=== PATIENT | female | born 1960 | race Caucasian/White ===

== ENCOUNTER 2016-10-23 01:52 | Emergency (ER) | payer MEDICARE ==
--- NOTE | ~2016-10-23 | CT16 ---
[facility] A Service of [facility] RADIOLOGY TEXT RESULTS PATIENT: MICKY GOMEZ LOCATION: SED : 56 UNIT #: [id number] AGE: [address]: Kirill Prakash MD SEX: F ORDER DR: [id number] [address] [address] [id number] MR#: [id number] Acc #: [id number] NAME: MICKY GOMEZ : 1960 SEX: F STUDY DATE/TIME: 10/23/2016 3:37 UNIT: SED ROOM: STUDY DESCRIPTION: CT Angio Chest for PE Attending Physician: Kirill Prakash M.D. Ordering Physician: Staff Doctor Not On Primary Care Physician: Bakari Marshall A.P.R.N. MEDICAL IMAGING REPORT This report is preliminary unless electronic signature is present. EXAM CT angiogram of the chest with contrast pulmonary embolism protocol. DATE 10/23/2016 at 03:37 HISTORY 56-year-old female with chronic with shortness of breath for a couple of days. Sharp chest pain when taking a deep breath and fever of 102 earlier today. Diagnosed with bronchitis a few weeks ago. D-dimer 324. History of sarcoidosis. COMPARISON PA and lateral chest radiograph 10/23/2016 at 02:40. VQ lung scan 04/01/2016. No previous CT chest for comparison at this institution. PROCEDURE 2 mm axial images through the chest after IV contrast administration. 3-D coronal MIP reformatted images were obtained. TECHNIQUE This CT exam was performed with one or more of the following radiation dose reduction techniques: automatic control, adjustment of mA and/or kV according to patient size, and iterative reconstruction. FINDINGS Scattered ground-glass densities are present within the right upper, middle and lower lobe and left lower lobe with sparing of the left upper lobe. No pulmonary embolism, aortic aneurysm or aortic dissection is seen. No pathologic adenopathy is seen. Dominant right upper paratracheal node measures 9 mm short axis, thought to be benign and reactive. Small amount of coronary calcification. No pericardial effusion. No pleural effusion. Cholecystectomy. Remainder of included upper abdominal organs [facility] A Service of [facility] RADIOLOGY TEXT RESULTS PATIENT: MICKY GOMEZ [place] [facility] [place] 56 UNIT #: [id number] AGE: [address]: Kirill Prakash MD SEX: F ORDER DR: are within normal limits. Mild degenerative endplate changes in the thoracic spine. No acute osseous abnormality. IMPRESSION 1. Scattered ground-glass opacities in both lungs with relative sparing of the left upper lobe. Correlate clinically for multifocal pneumonia or pneumonitis. 2. No pulmonary embolism, aortic aneurysm or aortic dissection. 3. Cholecystectomy. 4. Mild coronary artery calcifications. Dictated by... Sherry Govea M.D. THIS IS AN ELECTRONICALLY VERIFIED REPORT Sherry Govea M.D. at 10/23/2016 10:25 PM KATERINA/edita TD: 10/23/2016 12:41 JOB #: [id number] MEDICAL IMAGING REPORT
--- NOTE | ~2016-10-23 | EKG ---
PATIENT: MICKY GOMEZ UNIT #: [id number] Ventricular Rate: 92 BPM Atrial Rate: 92 BPM P-R Interval: 188 ms QRS Duration: 108 ms Q-T Interval: 366 ms QTC Calculation(Bezet): 452 ms P Waldo: 49 degrees Calculated R Waldo: -10 degrees Calculated T Waldo: 43 degrees Diagnosis Line: Normal sinus rhythm Diagnosis Line: Poor R wave progression questionable lead position Diagnosis Line: or body habitus Otherwise normal ECG Diagnosis Line: No previous ECGs available Diagnosis Line: Confirmed by JAY MIMS MD ([id number]) on 10/23/2016 Diagnosis Line: 4:15:09 PM INTERPRETING MD: PRASANNA MADISON
--- NOTE | ~2016-10-23 | CR63 ---
[facility] A Service of [facility] RADIOLOGY TEXT RESULTS PATIENT: MICKY GOMEZ LOCATION: SED : 56 UNIT #: [id number] AGE: [address]: Kirill Prakash MD SEX: F ORDER DR: [id number] [address] [address] [id number] E MR#: [id number] Acc #: [id number] NAME: MICKY GOMEZ : 1960 SEX: F STUDY DATE/TIME: 10/23/2016 2:40 UNIT: SED ROOM: STUDY DESCRIPTION: CR Chest 2 View Attending Physician: Kirill Prakash M.D. Ordering Physician: Ama Not Listed Primary Care Physician: Bakari Marshall A.P.R.N. MEDICAL IMAGING REPORT This report is preliminary unless electronic signature is present. EXAM PA and lateral chest, 10/23/2016. HISTORY Short of breath, sharp chest pain when taking a deep breath. Symptoms present for 1 month. COMPARISON STUDIES AP portable chest radiograph, 04/01/2016. FINDINGS No acute airspace disease. Heart size within normal limits. No pleural effusion or pneumothorax. Minimal degenerative spurring in the thoracic spine. No acute osseous abnormalities identified. IMPRESSION No acute cardiopulmonary findings. Dictated by... [id number] for Sherry Govea M.D. THIS IS AN ELECTRONICALLY VERIFIED REPORT Sherry Govea M.D. at 10/23/2016 10:25 PM KATERINA/duane TD: 10/23/2016 12:19 JOB #: [id number] MEDICAL IMAGING REPORT
[~2016-10-23 01:52] MED LIST: COUMADIN5 MG PO; DARVOCET-N 1001 TA1 PO; FLEXERIL10 MG PO; LORTAB 5/500 TA1 TA1 PO; PEPCID AC10 M1 PO; ROBAXIN 750750 MG PO; SYNTHROID0.05 MG PO; TEMAZEPAM PO; TOFRANIL-PM75 MG; TOFRANIL-PM75 MG PO; XANAX0.5 MG PO
[2016-10-23 02:04] LABS: BASOPHIL# 0.2 X10e3 (0-0.3); BASOPHIL% 0.9 % (0-2.5); EOSINOPHIL# 0.4 X10e3 (0-0.7); EOSINOPHIL% 2.2 % (0.0-7.0); LYMPHOCYTE# 2.3 X10e3 (1.0-3.5); MEAN CELL VOLUME 81.4 FL (83-96); MEAN CORPUSCULAR HGB CONC 33.2 g/dL (30-36); MEAN PLATELET VOLUME 6.5 FL (6.5-11.5); MONOCYTE# 0.7 X10e3 (0-1.0); MONOCYTE% 3.7 % (3.0-12.0); NEUTROPHIL% 80.2 % (40-75); PLATELET COUNT 302 X10e3 (140-420); RED BLOOD COUNT 4.43 X10e (3.90-5.30); RED CELL DISTRIBUTION WIDTH 14.8 % (11.0-15.5); WHITE BLOOD COUNT 17.4 X10e3 (4.0-10.5)
[2016-10-23 02:07] LABS: DIFF IND NO
[2016-10-23 02:23] LABS: POC - CKMB <1.0 ng/mL (0.0-7.9); POC - MYOGLOBIN 33.7 ng/mL (0.0-169.0); POC - TROPONIN <0.05 ng/mL (<=0.05)
[2016-10-23 02:28] LABS: ALBUMIN SERUM 3.7 g/dL (3.5-5.0); ALKALINE PHOSPHATASE 145 U/L (32-92); ALT (SGPT) 11 U/L (10-40); AST (SGOT) 34 U/L (10-42); BILIRUBIN,TOTAL 0.6 mg/dL (0.2-2.0); BLOOD UREA NITROGEN 10 mg/dL (9-23); BUN/CREATININE RATIO 14.28; CALCIUM SERUM 8.2 mg/dL (8.4-10.2); CARBON DIOXIDE 22 mmol/L (22-31); CHLORIDE 100 mmol/L (100-111); CREATININE SERUM 0.7 mg/dL (0.6-1.4); GLOM FILT RATE Estimated ABOVE60 mL/min (>60); GLUCOSE FASTING 151 mg/dL (70-110); PROTEIN TOTAL SERUM 7.8 g/dL (6.0-8.3); SODIUM 130 mmol/L (135-145)
[2016-10-23 02:30] LABS: BILIRUBIN, DIRECT <0.1 mg/dL (0.0-0.2); BILIRUBIN,INDIRECT 0.5 mg/dL (0.0-0.9); POTASSIUM 2.5 mmol/L (3.5-5.1)
[2017-04-23] MEDS ORDERED: MELOXICAM7.5 MG PO (10:52)
[2017-04-23] MEDS ORDERED: ESCITALOPRAM OX10 MG PO (10:52)
[2017-04-23] MEDS ORDERED: LEVOTHYROXINE75 MCG PO (10:54)
[2017-04-23] MEDS ORDERED: LIPITOR40 MG PO (10:54)
[2017-04-23] MEDS ORDERED: VITAMIN D350000 UNIT PO (10:58)
[2017-04-23] MEDS ORDERED: OMEPRAZOLE20 M1 PO (10:59)
[2017-04-23] MEDS ORDERED: WARFARIN SODIUM4 M1 PO (10:59)
[2017-04-23] MEDS ORDERED: AMLODIPINE BESY10 MG PO (10:59)
[2017-04-23] MEDS ORDERED: AMITRIPTYLINE100 MG PO (11:00)
[2017-04-23] MEDS ORDERED: ZANAFLEX4 M1 PO (11:00)
[2017-04-26] MEDS ORDERED: PERCOCET 5/321 UDTAB PO (10:45)
== END 2016-10-23 04:25 | disposition home or self-care (01) ==
LOC: SED 01:52
PROVIDERS: Emergency Medicine
DX: J18.0 Bronchopneumonia, unspecified organism (principal); Z98.890 Other specified postprocedural states; Z88.0 Allergy status to penicillin; Z88.2 Allergy status to sulfonamides; Z79.899 Other long term (current) drug therapy; Z79.02 Long term (current) use of antithrombotics/antiplatelets
CPT/HCPCS: 36415; 71020; 71275; 80048; 80076; 82553; 83874; 84484; 85025; 85379; 93005; 96374; 99284; J1885; Q9967

== ENCOUNTER 2016-12-03 15:22 | Inpatient (IN) | payer MEDICARE ==
--- NOTE | ~2016-12-03 | CR72 ---
[facility]. [facility] A Service of [facility] & [facility] RADIOLOGY TEXT RESULTS PATIENT: MICKY GOMEZ LOCATION: [place] [address] : 56 UNIT #: [id number] AGE: [address]: Sammie Rachel MD SEX: F ORDER DR: [id number] [address] [address] [id number] E MR#: [id number] Acc #: [id number] NAME: MICKY GOMEZ : 1960 SEX: F STUDY DATE/TIME: 12/03/2016 16:37 UNIT: SED ROOM: STUDY DESCRIPTION: CR Chest Single View Portable Attending Physician: Jerrell Burrell M.D. Ordering Physician: Jerrell Burrell M.D. Primary Care Physician: Bakari Marshall A.P.R.N. MEDICAL IMAGING REPORT This report is preliminary unless electronic signature is present. EXAM Portable chest, 1 view. DATE OF EXAM 12/03/2016 COMPARISON 10/23/2016 CLINICAL HISTORY Cough and short of air, right-sided chest pain since yesterday. FINDINGS Extensive right mid and lower lung infiltrate, no effusion. Left lung is clear. Borderline to mild cardiomegaly, no pneumothorax. Dictated by... Los Guevara M.D. THIS IS AN ELECTRONICALLY VERIFIED REPORT Los Guevara M.D. at 12/04/2016 9:40 AM RAHEEM/eddi TD: 12/03/2016 21:22 JOB #: [id number] MEDICAL IMAGING REPORT Page 1 of 1
--- NOTE | ~2016-12-03 | OR ---
Unit #: [id number] #: [id number] Patient: MICKY GOMEZ [id number] [address] [address] [id number] I MR#: [id number] NAME: MICKY GOMEZ ROOM: 554 Date of Procedure: Admission Date: 12/03/2016 Surgeon: Stella Moise M.D. : 1960 Attending Physician: Sammie Rachel M.D. Primary Care Physician: Bakari Marshall A.P.R.N. PROCEDURE OPERATIVE NOTE PREPROCEDURE DIAGNOSIS Pneumonia. POSTPROCEDURE DIAGNOSIS Pneumonia. PROCEDURE PERFORMED Diagnostic bronchoscopy. INDICATION Pneumonia. DETAILS OF THE PROCEDURE After taking consent from the patient explaining the risks and benefits, patient placed in appropriate position. Bronchoscope introduced through the oral cavity. Vocal cords appeared to be symmetrically moving toward the midline. Trachea was normal. Janeen was sharp. We examined the right upper, right middle, right lower lobe, left upper lobe, lingula, left lower lobe. No endobronchial lesion was found. There were thick mucoid secretions which were therapeutically suction. Then, we did a bronchoalveolar lavage in the right upper lobe area with 60 mL saline in and 20 mL back. The patient tolerated the procedure very well. No complication happened. Dictated by... Bacilio Lisa TD: 12/06/2016 09:49 JOB #: [id number] Unit #: [id number] #: [id number] Patient: MICKY GOMEZ PROCEDURE OPERATIVE NOTE Page 1 of 1 X Stella Moise MD X PROCEDURE OPERATIVE NOTE
--- NOTE | ~2016-12-03 | DS ---
Unit #: [id number] #: [id number] Patient: MICKY GOMEZ [id number] [address] [place], [place] [address] [id number] I MR#: [id number] NAME: MICKY GOMEZ ROOM: 55 Age: 56 Sex: F Admission Date: 12/03/2016 : 1960 Discharge Date: 12/09/2016 Attending Physician: Sammie Rachel M.D. Primary Care Physician: Bakari Marshall A.P.R.N. DISCHARGE SUMMARY FINAL DIAGNOSES 1. Acute hypoxic respiratory failure which is resolved. 2. Community acquired pneumonia. 3. History of sarcoidosis. 4. History of arterial blood clot. 5. History of depression. 6. History of hypothyroidism. DISCHARGE MEDICATIONS 1. Omnicef 300 mg p.o. b.i.d. for 7 days. 2. Prednisone 40 mg p.o. daily for 3 days, then decrease 10 mg every 3 days until off. 3. Continue the rest of the home medications. DIAGNOSTIC DATA LABORATORY: At discharge, PT/INR 17.2 and 1.6. CBC shows white blood cell count 18.2, 11.1, hematocrit 34.3 and platelet count 388. BMP showed sodium 139, potassium 3.6, chloride 103, BUN 17, creatinine 0.6. Bronch culture is 2+ normal shelby. Cytology seems to be negative for malignancy. Hemoglobin A1c 5.6. Influenza A and B were negative. IMAGING: CT scan of the chest was performed during hospitalization, which showed ground glass infiltrate in multiple areas is the right upper lobe and total amount of lung involved was increased from 10/23/2016. PROCEDURES PERFORMED Diagnostic bronchoscopy, which shows trachea was normal, michelle was sharp, no endobronchial lesions were found. There were thick mucoid secretions which were suctioned. HOSPITAL COURSE Ms. Rubio is a 56-year-old female who was admitted to the hospital by my colleague, Dr. Thomas. The patient came in with shortness of breath and cough with sputum production. The patient was diagnosed with acute hypoxic respiratory failure and pneumonia and chronic obstructive pulmonary disease. The patient does have a history of sarcoidosis. The patient is off O2 at this time. Dr. Moise evaluated the patient and as per 12/08/2016 note the patient can be discharged home on Omnicef. The patient does have ground glass on CT from 10/23/2016 and 12/04/2016. The patient does need to follow up with Dr. Moise as an outpatient because she will need CT scan again done after antibiotics have been completed. This has been discussed with the patient also and she verbalizes understanding. Unit #: [id number] #: [id number] Patient: MICKY GOMEZ PHYSICAL EXAMINATION VITALS: At discharge, blood pressure 146/88, respiratory rate 17, pulse 83, temperature 98.6, oxygen saturation 97%. CHEST: Fair air entry. Mild rhonchi present on the right side. EXTREMITIES: Negative edema. DISCHARGE INSTRUCTIONS 1. The patient is being discharged home in stable condition. 2. Medications as per medication reconciliation. 3. Follow up with Dr. Moise in two weeks. 4. Follow up with primary care provider in one week. Dictated by... Bacilio Angeles TD: 12/10/2016 08:29 JOB #: [id number] DISCHARGE SUMMARY Page 1 of 1 X Sammie Rachel MD X DISCHARGE SUMMARY
--- NOTE | ~2016-12-03 | CO ---
Unit #: [id number] #: [id number] Patient: MICKY GOMEZ [id number] [address] [address] [id number] MR#: [id number] NAME: MICKY GOMEZ ROOM: 554 Age: 56 Sex: F Admission Date: 12/03/2016 : 1960 Attending Physician: Sammie Rachel M.D. Primary Care Physician: Bakari Marshall A.P.R.N. CONSULTATION REPORT CHIEF COMPLAINT Cough, shortness of breath. REASON FOR CONSULTATION Chronic obstructive pulmonary disease exacerbation and pneumonia. HISTORY OF PRESENT ILLNESS The patient is a 56-year-old female with a past medical history of chronic obstructive pulmonary disease, who presented to the emergency room with the complaint of cough, shortness of breath and increasing sputum production. The patient was found to have pneumonia and has been admitted. I am seeing the patient at the bedside. She denies any headache, blurry vision or chest pain. PAST MEDICAL HISTORY 1. Chronic obstructive pulmonary disease. 2. Hypothyroidism. 3. Hypertension. SOCIAL HISTORY Positive smoking. No alcohol or drug abuse. FAMILY HISTORY None. ALLERGIES Reviewed. CURRENT MEDICATIONS As per MAR. Has been reviewed. REVIEW OF SYSTEMS Positive pallor. No edema. No cyanosis or jaundice. The rest is per the history of present illness. The rest of the 12-point review of systems has been reviewed and is negative. PHYSICAL EXAMINATION VITALS: Temperature 98, pulse 87, respiratory rate (1) , blood pressure 115/70. HEENT: Pupils equally round and reactive to light and accommodation. NECK: Supple. No jugular venous distension. CHEST: Bilateral air entry. Bilateral mild rhonchi. ABDOMEN: Nontender and soft. Bowel sounds positive. EXTREMITIES: No edema. Unit #: [id number] #: [id number] Patient: MICKY GOMEZ SKIN: No rashes. LYMPH: No lymphadenopathy. NEUROLOGIC: Awake, alert and oriented, no neurologic deficits. DIAGNOSTIC STUDIES IMAGING: Reviewed. LABORATORY: Reviewed. ASSESSMENT 1. Acute hypoxic respiratory failure. 2. Acute exacerbation of chronic obstructive pulmonary disease. 3. Pneumonia. PLAN Continue IV Zithromax and Rocephin. Continue IV steroids, bronchodilator, GI and DVT prophylaxis. Will order noncontrast CT of the chest. Please see orders for detailed plan. Thank you very much for this consultation. Dictated by... Bacilio Lisa/vianney TD: 12/04/2016 13:43 JOB #: [id number] CONSULTATION REPORT Page 1 of 1 X Stella Moise MD X CONSULTATION REPORT
--- NOTE | ~2016-12-03 | HP ---
Unit #: [id number] #: [id number] Patient: MICKY RAMOS [id number] [address] [address] [id number] I MR#: [id number] NAME: MICKY RAMOS ROOM: 55 Age: 56 Sex: F Admission Date: 12/03/2016 : 1960 Attending Physician: Sammie Rachel M.D. Primary Care Physician: Bakari Marshall A.P.R.N. HISTORY AND PHYSICAL ADMISSION DIAGNOSES 1. Acute hypoxemic respiratory failure. 2. Community-acquired pneumonia. 3. History of sarcoidosis. 4. History of arterial blood clot. 5. History of depression. HISTORY OF PRESENT ILLNESS Ms. Ramos is a 56-year-old female patient of Dr. Vaughan who presents to the emergency room with the complaints of increasing shortness of air, dyspnea. Initial evaluation with the x-ray was suspicious for pneumonia. Patient was started on Zithromax and Rocephin for community-acquired pneumonia and was admitted. Currently, she is much more comfortable. Shortness of air is improving. She is status post evaluation per Pulmonary and started on IV Solu-Medrol as well. She otherwise denies any active chest pain currently. Denies any headache, dizziness, fever, chills, nausea, vomiting, diarrhea or abdominal pain. Complains of some shortness of air and cough. Again, her symptoms are generally improving since admission to the hospital. PAST MEDICAL HISTORY Significant for: 1. History of sarcoidosis. 2. History of arterial blood clot. 3. Hypothyroidism. 4. Depression and anxiety. HOME MEDICATIONS Include: 1. Lortab. 2. Restoril. 3. Coumadin. 4. Pepcid. 5. Xanax. 6. Synthroid. 7. Imipramine. ALLERGIES 1. Penicillin. 2. Sulfa. SOCIAL HISTORY Denies any tobacco, alcohol, or illicit drugs. Unit #: [id number] #: [id number] Patient: MICKY RAMOS FAMILY HISTORY Unremarkable. PHYSICAL EXAMINATION VITAL SIGNS: BP 110/58, heart rate 103, respirations 20, temperature 97.7. GENERAL: The patient is 56-year-old female in no acute distress. HEENT: Head is atraumatic. Pupils equal, round, reactive to light and accommodation. Extraocular muscles are intact. Oropharynx is clear. NECK: Supple. No mass, no JVD, no bruits. LUNGS: Diminished bilaterally more on the left than right. ABDOMEN: Obese, soft, nontender, nondistended. LOWER EXTREMITIES: Without any cyanosis, clubbing, or edema. NEUROLOGIC: Grossly intact, no focal deficits. DIAGNOSTIC STUDIES LABORATORY: Chemistry is significant for sodium 130, otherwise unremarkable. PT/INR today 18.6 and 1.7. White count 23,000, hemoglobin 12 and hematocrit 36.4. IMAGING: Chest x-ray shows left lower lobe infiltrate. ASSESSMENT AND PLAN 1. Acute hypoxemic respiratory failure with community-acquired pneumonia. Continue bronchodilators, IV steroids and antibiotics, status post evaluation per Pulmonary. 2. History of sarcoidosis. 3. History of arterial blood clot. Continue Coumadin. Will change to Lovenox to treatment dose while INR is less than 2.0. 4. Depression anxiety. Continue home medications. 5. GI and DVT prophylaxis. Continue Protonix and current anticoagulation. Dictated by Bacilio Shahid/aba TD: 12/04/2016 19:23 JOB #: [id number] HISTORY AND PHYSICAL Page 1 of 1 X Carlos Enrique Thomas MD X HISTORY AND PHYSICAL
--- NOTE | ~2016-12-03 | CT57 ---
[facility] A Service of [facility] & [facility] RADIOLOGY TEXT RESULTS PATIENT: MICKY GOMEZ LOCATION: [facility] 55- : 56 UNIT #: [id number] AGE: [address]: Sammie Rachel MD SEX: F ORDER DR: [id number] [facility] [address] [place], [place] [address] [id number] I MR#: [id number] Acc #: [id number] NAME: MICKY GOMEZ : 1960 SEX: F STUDY DATE/TIME: 12/04/2016 13:59 UNIT: C5B ROOM: [facility] STUDY DESCRIPTION: CT Chest Wo Cont Attending Physician: Sammie Rachel M.D. Ordering Physician: Stella Moise M.D. Primary Care Physician: Bakari Marshall A.P.R.N. MEDICAL IMAGING REPORT This report is preliminary unless electronic signature is present EXAM CT chest without contrast HISTORY Cough, shortness of air beginning 2 days ago. COMPARISON STUDIES 10/23/2016. TECHNIQUE Axial 5 mm images were obtained through the chest without IV contrast. This CT exam was performed with one or more of the following radiation dose reduction techniques: automatic exposure control, adjustment of mA and/or kV according to patient size, and iterative reconstruction. FINDINGS There is a large area of ground-glass infiltrate in the right upper lobe measuring about 10 cm in diameter. In this same area on the prior study, there was an infiltrate about 4-5 cm in diameter. Additional ground-glass infiltrates are present in the right middle lobe and right lower lobe. There are similar to those seen on the prior study, although slightly more extensive and the left lung is clear. Thyroid gland is normal or absent. The aorta is normal in size. There is no mediastinal or hilar adenopathy. The visualized portions of the upper abdomen are normal. Bones are unremarkable. IMPRESSION 1. There are ground-glass infiltrates in multiple areas in the right upper lobe and the total amount of lung involved is increased from 10/23/2016. On the prior study, there was a left lower lobe superior segment ground-glass infiltrate and that has resolved. The left lung STS. [facility] A Service of [facility] & [facility] RADIOLOGY TEXT RESULTS PATIENT: MICKY GOMEZ LOCATION: [facility] [id number] : [birth year] UNIT #: [id number] AGE: [address]: Sammie Rachel MD SEX: F ORDER DR: is clear. 2. Otherwise, the study is negative. Dictated by... Anuj Sylvester M.D. THIS IS AN ELECTRONICALLY VERIFIED REPORT Anuj Sylvester M.D. at 12/05/2016 7:18 AM FEL/pcl TD: 12/04/2016 19:05 JOB #: [id number] MEDICAL IMAGING REPORT Page 1 of 1 COPY
--- NOTE | ~2016-12-03 | EKG ---
PATIENT: MICKY GOMEZ UNIT #: [id number] Ventricular Rate: 96 BPM Atrial Rate: 96 BPM P-R Interval: 164 ms QRS Duration: 98 ms Q-T Interval: 358 ms QTC Calculation(Bezet): 452 ms P Kirkland: 34 degrees Calculated R Kirkland: -13 degrees Calculated T Kirkland: 22 degrees Diagnosis Line: Normal sinus rhythm Diagnosis Line: Nonspecific T wave abnormality Diagnosis Line: Otherwise normal ECG Diagnosis Line: When compared with ECG of 23-OCT-2016 01:47, Diagnosis Line: No significant change was found Diagnosis Line: Confirmed by JAY MIMS MD ([id number]) on 12/05/2016 Diagnosis Line: 12:02:16 PM INTERPRETING MD: PRASANNA MADISON
[2016-12-03 15:56] LABS: BASOPHIL# 0.2 X10e3 (0-0.3); BASOPHIL% 0.8 % (0-2.5); EOSINOPHIL# 0.1 X10e3 (0-0.7); EOSINOPHIL% 0.3 % (0.0-7.0); HEMATOCRIT 36.4 % (35.0-45.0); LYMPHOCYTE# 1.2 X10e3 (1.0-3.5); LYMPHOCYTE% 5.3 % (17.0-45.0); MEAN CORPUSCULAR HGB CONC 32.9 g/dL (30-36); MEAN PLATELET VOLUME 6.8 FL (6.5-11.5); MONOCYTE# 0.8 X10e3 (0-1.0); MONOCYTE% 3.4 % (3.0-12.0); NEUTROPHIL# 20.7 X10e3 (1.5-7.1); NEUTROPHIL% 90.2 % (40-75); PLATELET COUNT 315 X10e3 (140-420); RED BLOOD COUNT 4.43 X10e (3.90-5.30); RED CELL DISTRIBUTION WIDTH 15.2 % (11.0-15.5)
[2016-12-03 16:10] LABS: DIFF IND YES
[2016-12-03 16:14] LABS: ALBUMIN SERUM 4.1 g/dL (3.5-5.0); BILIRUBIN, DIRECT 0.1 mg/dL (0.0-0.2); BILIRUBIN,INDIRECT 0.3 mg/dL (0.0-0.9); BILIRUBIN,TOTAL 0.4 mg/dL (0.2-2.0); BUN/CREATININE RATIO 15.71; CALCIUM SERUM 8.8 mg/dL (8.4-10.2); CREATININE SERUM 0.7 mg/dL (0.6-1.4); GLOM FILT RATE Estimated 95.5 mL/min (>60); POTASSIUM 3.6 mmol/L (3.5-5.1); PROTEIN TOTAL SERUM 7.8 g/dL (6.0-8.3)
[2016-12-03 16:30] LABS: INR 2.7; PROTHROMBIN TIME (PATIENT) 30.6 SECONDS (9.5-12.4)
[2016-12-03 16:50] LABS: PLATELET ESTIMATE NORMAL (NORMAL); RBC NORMAL YES
[2016-12-04 05:31] LABS: INR 1.7; PROTHROMBIN TIME (PATIENT) 18.6 SECONDS (9.6-11.5)
[2016-12-05 05:06] LABS: INFLUENZA A NEG (NEG); INFLUENZA B NEG (NEG)
[2016-12-05 05:23] LABS: HEMATOCRIT 32.4 % (35.0-45.0); HEMOGLOBIN 10.6 gm/dL (12.0-16.0); MEAN CELL VOLUME 82.1 FL (83-96); MEAN CORPUSCULAR HEMOGLOBIN 26.8 PG (28-34); MEAN CORPUSCULAR HGB CONC 32.6 g/dL (30-36); MEAN PLATELET VOLUME 7.1 FL (6.5-11.5); RED BLOOD COUNT 3.95 X10e (3.90-5.30); RED CELL DISTRIBUTION WIDTH 15.5 % (11.0-15.5); WHITE BLOOD COUNT 27.5 X10e3 (4.0-10.5)
[2016-12-05 05:30] LABS: INR 1.9
[2016-12-05 05:45] LABS: BUN/CREATININE RATIO 18.75; CALCIUM SERUM 9.3 mg/dL (8.4-10.2); CREATININE SERUM 0.8 mg/dL (0.6-1.4); GLOM FILT RATE Estimated 81.3 mL/min (>60); POTASSIUM 3.9 mmol/L (3.5-5.1)
[2016-12-06 07:01] LABS: HEMATOCRIT 34.5 % (35.0-45.0); HEMOGLOBIN 10.9 gm/dL (12.0-16.0); MEAN CELL VOLUME 82.9 FL (83-96); MEAN CORPUSCULAR HEMOGLOBIN 26.3 PG (28-34); MEAN CORPUSCULAR HGB CONC 31.7 g/dL (30-36); MEAN PLATELET VOLUME 7.3 FL (6.5-11.5); RED BLOOD COUNT 4.16 X10e (3.90-5.30); RED CELL DISTRIBUTION WIDTH 15.7 % (11.0-15.5); WHITE BLOOD COUNT 21.8 X10e3 (4.0-10.5)
[2016-12-06 07:07] LABS: INR 3.2
[2016-12-06 07:10] LABS: PROTHROMBIN TIME (PATIENT) 34.6 SECONDS (9.6-11.5)
[2016-12-06 07:41] LABS: CALCIUM SERUM 8.9 mg/dL (8.4-10.2); CREATININE SERUM 0.6 mg/dL (0.6-1.4); GLOM FILT RATE Estimated 100.5 mL/min (>60); POTASSIUM 3.8 mmol/L (3.5-5.1)
[2016-12-06 10:32] LABS: BODY FLUID APPEARANCE TURBID; BODY FLUID SOURCE BRONCHIAL LAVAGE
[2016-12-07 06:58] LABS: HEMATOCRIT 34.7 % (35.0-45.0); HEMOGLOBIN 11.1 gm/dL (12.0-16.0); MEAN CORPUSCULAR HEMOGLOBIN 26.6 PG (28-34); MEAN CORPUSCULAR HGB CONC 32.1 g/dL (30-36); MEAN PLATELET VOLUME 7.1 FL (6.5-11.5); RED BLOOD COUNT 4.18 X10e (3.90-5.30); RED CELL DISTRIBUTION WIDTH 15.5 % (11.0-15.5); WHITE BLOOD COUNT 17.3 X10e3 (4.0-10.5)
[2016-12-07 07:04] LABS: INR 3.3
[2016-12-07 07:47] LABS: BUN/CREATININE RATIO 28.33; CALCIUM SERUM 8.8 mg/dL (8.4-10.2); CREATININE SERUM 0.6 mg/dL (0.6-1.4); GLOM FILT RATE Estimated 100.5 mL/min (>60); POTASSIUM 3.6 mmol/L (3.5-5.1)
[2016-12-08 06:58] LABS: HEMOGLOBIN 11.2 gm/dL (12.0-16.0); MEAN CELL VOLUME 82.5 FL (83-96); MEAN CORPUSCULAR HEMOGLOBIN 26.5 PG (28-34); MEAN CORPUSCULAR HGB CONC 32.1 g/dL (30-36); MEAN PLATELET VOLUME 7.3 FL (6.5-11.5); RED BLOOD COUNT 4.24 X10e (3.90-5.30); RED CELL DISTRIBUTION WIDTH 15.2 % (11.0-15.5); WHITE BLOOD COUNT 17.6 X10e3 (4.0-10.5)
[2016-12-08 07:10] LABS: INR 2.1; PROTHROMBIN TIME (PATIENT) 22.7 SECONDS (9.6-11.5)
[2016-12-09 07:07] LABS: HEMATOCRIT 34.3 % (35.0-45.0); HEMOGLOBIN 11.1 gm/dL (12.0-16.0); MEAN CELL VOLUME 82.5 FL (83-96); MEAN CORPUSCULAR HEMOGLOBIN 26.6 PG (28-34); MEAN CORPUSCULAR HGB CONC 32.2 g/dL (30-36); MEAN PLATELET VOLUME 7.1 FL (6.5-11.5); RED BLOOD COUNT 4.16 X10e (3.90-5.30); RED CELL DISTRIBUTION WIDTH 15.2 % (11.0-15.5)
[2016-12-09 07:11] LABS: INR 1.6; PROTHROMBIN TIME (PATIENT) 17.2 SECONDS (9.6-11.5)
[2016-12-09] MEDS ORDERED: PREDNISONE PO (16:19)
[2016-12-09] MEDS ORDERED: ACETAMINOPHEN650 M1 PO (16:21)
[2016-12-09] MEDS ORDERED: OMNICEF300 M1 PO (16:29)
[2017-04-23] MEDS ORDERED: ESCITALOPRAM OX10 MG PO (10:52)
[2017-04-23] MEDS ORDERED: MELOXICAM7.5 MG PO (10:52)
[2017-04-23] MEDS ORDERED: LEVOTHYROXINE75 MCG PO (10:54)
[2017-04-23] MEDS ORDERED: LIPITOR40 MG PO (10:54)
[2017-04-23] MEDS ORDERED: VITAMIN D350000 UNIT PO (10:58)
[2017-04-23] MEDS ORDERED: WARFARIN SODIUM4 M1 PO (10:59)
[2017-04-23] MEDS ORDERED: AMLODIPINE BESY10 MG PO (10:59)
[2017-04-23] MEDS ORDERED: OMEPRAZOLE20 M1 PO (10:59)
[2017-04-23] MEDS ORDERED: ZANAFLEX4 M1 PO (11:00)
[2017-04-23] MEDS ORDERED: AMITRIPTYLINE100 MG PO (11:00)
[2017-04-26] MEDS ORDERED: PERCOCET 5/321 UDTAB PO (10:45)
== END 2016-12-09 17:46 | disposition home or self-care (01) | DRG 163 ==
LOC: SED 15:22 → CEDOF 19:43 → C5B 22:41
PROVIDERS: Emergency Medicine; Hospitalist; Internal Medicine; Physician Assistant Medical
PROC: 0B9C8ZX Drainage of Right Upper Lung Lobe, Via Natural or Artificial Opening Endoscopic, Diagnostic (ICD-10-PCS; principal; 2016-12-03)
PROC: 0B948ZZ Drainage of Right Upper Lobe Bronchus, Via Natural or Artificial Opening Endoscopic (ICD-10-PCS; 2016-12-06)
PROC: 0B988ZZ Drainage of Left Upper Lobe Bronchus, Via Natural or Artificial Opening Endoscopic (ICD-10-PCS; 2016-12-06)
PROC: 0B9B8ZZ Drainage of Left Lower Lobe Bronchus, Via Natural or Artificial Opening Endoscopic (ICD-10-PCS; 2016-12-06)
PROC: 0B998ZZ Drainage of Lingula Bronchus, Via Natural or Artificial Opening Endoscopic (ICD-10-PCS; 2016-12-06)
PROC: 0B968ZZ Drainage of Right Lower Lobe Bronchus, Via Natural or Artificial Opening Endoscopic (ICD-10-PCS; 2016-12-06)
PROC: 0B958ZZ Drainage of Right Middle Lobe Bronchus, Via Natural or Artificial Opening Endoscopic (ICD-10-PCS; 2016-12-06 08:40)
DX: J96.01 Acute respiratory failure with hypoxia (principal); J18.9 Pneumonia, unspecified organism; E66.01 Morbid (severe) obesity due to excess calories; J44.0 Chronic obstructive pulmonary disease with (acute) lower respiratory infection; J44.1 Chronic obstructive pulmonary disease with (acute) exacerbation; D86.9 Sarcoidosis, unspecified; F32.9 Major depressive disorder, single episode, unspecified; F41.9 Anxiety disorder, unspecified; E03.9 Hypothyroidism, unspecified; Z88.0 Allergy status to penicillin; Z88.2 Allergy status to sulfonamides; Z86.718 Personal history of other venous thrombosis and embolism; Z79.01 Long term (current) use of anticoagulants; G47.33 Obstructive sleep apnea (adult) (pediatric)
CPT/HCPCS: 36415; 71010; 71250; 80048; 80076; 83036; 85025; 85027; 85610; 87040; 87070; 87102; 87106; 87116; 87205; 87206; 87252; 87254; 87278; 87804; 88108; 88305; 88312; 89051; 93005; 94640; 94760; 96361; 96365; 96375; 99291; C9113; J0171; J0456; J0696; J1650; J2930

== ENCOUNTER → 2017-01-07 | Outpatient (CLI) | payer MEDICARE ==
[~2017-01-07] MED LIST changes: +ACETAMINOPHEN650 M1 PO; +AMITRIPTYLINE100 MG PO; +AMLODIPINE BESY10 MG PO; +ESCITALOPRAM OX10 MG PO; +LEVOTHYROXINE75 MCG PO; +LIPITOR40 MG PO; +MELOXICAM7.5 MG PO; +OMEPRAZOLE20 M1 PO; +OMNICEF300 M1 PO; +PERCOCET 5/321 UDTAB PO; +PREDNISONE PO; +VITAMIN D350000 UNIT PO; +WARFARIN SODIUM4 M1 PO; +ZANAFLEX4 M1 PO
--- NOTE | ~2017-01-07 | CT57 ---
[facility] A Service of [facility] RADIOLOGY TEXT RESULTS PATIENT: MICKY GOMEZ LOCATION: [facility] : 56 UNIT #: [id number] AGE: [address]: Stella Moise MD SEX: F ORDER DR: [id number] [facility] [address] [place], [place] [address] [id number] MR#: [id number] Acc #: [id number] NAME: MICKY GOMEZ : 1960 SEX: F STUDY DATE/TIME: 01/07/2017 11:12 UNIT: [facility] ROOM: STUDY DESCRIPTION: CT Chest Wo Cont Attending Physician: Stella Moise M.D. Referring Physician: Stella Moise M.D. Ordering Physician: Stella Moise M.D. Primary Care Physician: Bakari Marshall A.P.R.N. MEDICAL IMAGING REPORT This report is preliminary unless electronic signature is present EXAM CT chest 01/07/2017 HISTORY Pneumonia. Short of air, pneumonia for 2 years. Admit/discharge from hospital 3 weeks ago for pneumonia. Prior history includes gallbladder surgery, hysterectomy, left arm blood clot, sarcoidosis, thyroid disease, asthma. TECHNIQUE CT chest performed without administration of intravenous contrast. This CT exam was performed with one or more of the following radiation dose reduction techniques: Automatic exposure control, adjustment of mA and/or kV according to patient size, and iterative reconstruction. Comparison 12/04/2016. FINDINGS Visualized thyroid unremarkable. No axillary adenopathy. Small mediastinal nodes not significantly changed from prior study. 7 mm short-axis pretracheal/precarinal node unchanged. No pathologically enlarged nodes. Heart upper limits of normal in size. Stable. Coronary and aortic valvular calcifications are seen. No pleural effusions. Visualized portions of liver unremarkable. Status post cholecystectomy. Spleen, pancreas, adrenal glands, kidneys unremarkable. No upper abdominal adenopathy. Esophagus, stomach, visualized segments of small bowel and colon unremarkable. Pulmonary parenchyma shows some mild underlying centrilobular emphysema in the upper lung zones. Correlate with risk factors. No acute disease in the left lung. Previous examination showed extensive ground-glass densities throughout the right lung. On the current study, there are milder residual ground-glass densities in the right upper lobe clearly improved, but not yet resolved. Some associated bronchial wall thickening STS. [facility] A Service of [facility] RADIOLOGY TEXT RESULTS PATIENT: MICKY GOMEZ LOCATION: [facility] : 56 UNIT #: [id number] AGE: [address]: Stella Moise MD SEX: F ORDER DR: likely reflecting a component of bronchitis. The right middle lobe is now clear. The right lower lobe is clear. There is no suspicious nodule. No pneumothorax. No dense airspace disease. Overall appearance suggests slowly resolving right lung pneumonia. Continued followup to complete radiographic resolution is recommended. Unopacified vascular structures show atherosclerotic arterial calcifications but no indication of aneurysm. The bony structures show degenerative change but no acute-appearing abnormality. IMPRESSION 1. Significantly improved but not yet completely resolved right-sided pneumonia. There are residual patchy ground-glass densities in the right upper lobe. These have improved compared to December 04, 2016, but are not yet resolved and continued followup to complete resolution is strongly recommended. 2. Previously seen ground-glass densities in the right middle and lower lobes have resolved. These portions of the right lung are now clear. 3. Left lung remains clear. 4. Heart upper limits of normal in size to borderline enlarged. 5. See remainder of incidental findings in body of report above. Dictated by... Eric Ramos M.D. THIS IS AN ELECTRONICALLY VERIFIED REPORT Eric Ramos M.D. at 01/08/2017 5:58 PM Seda TD: 01/08/2017 00:15 JOB #: [id number] MEDICAL IMAGING REPORT Page 1 of 1 COPY
== END | disposition home or self-care (01) ==
LOC: CCAT 10:27
DX: J18.9 Pneumonia, unspecified organism (principal); J98.4 Other disorders of lung
CPT/HCPCS: 71250

== ENCOUNTER → 2017-04-03 | Outpatient (CLI) | payer MEDICARE ==
--- NOTE | ~2017-04-03 | CT57 ---
[facility] A Service of [facility] RADIOLOGY TEXT RESULTS PATIENT: MICKY GOMEZ LOCATION: [facility] : 56 UNIT #: [id number] AGE: [address]: Mario Ferguson MD SEX: F ORDER DR: [id number] [facility] [address]. [place], [place] [address] [id number] O MR#: [id number] #: [id number] NAME: MICKY GOMEZ : 1960 SEX: F STUDY DATE/TIME: 04/03/2017 12:49 UNIT: [facility] ROOM: STUDY DESCRIPTION: CT Chest Wo Cont Attending Physician: Mario Ferguson M.D. Referring Physician: Mario Ferguson M.D. Ordering Physician: Mario Ferguson M.D. Primary Care Physician: Bakari Marshall A.P.R.N. MEDICAL IMAGING REPORT This report is preliminary unless electronic signature is present EXAM CT chest without IV contrast COMPARISON Chest radiographs December 03, 2016, October 23, 2016, and CT chest dated January 07, 2017, December 04, 2016, and October 23, 2016. INDICATIONS 56-year-old female with chest pain since October 2016. Follow both pneumonia and pulmonary ground-glass densities seen on CT of January 07, 2017. Patient reports 4 episodes of pneumonia since October. FINDINGS Axial CT imaging of the chest was performed. Lack of IV contrast limits evaluation of adenopathy and vasculature. This CT exam was performed with one or more of the following radiation dose reduction techniques: automatic exposure control, adjustment of mA and/or kV according to patient size, and iterative reconstruction. FINDINGS Mild multilevel degenerative endplate change of the thoracic spine. No acute fractures or suspicious osseous lesions. Subcentimeter reactive lymph nodes in the mediastinum are unchanged. There is 1 lymph node in the pretracheal location measuring up to 1 cm short axis that is also stable. This is also favored to be reactive. Normal caliber of the thoracic aorta and pulmonary artery. There is normal heart size. There is minimal calcification at the level of the aortic valve, and there is also some calcification of the left anterior descending coronary artery, as well as circumflex coronary artery focally. Airways are widely patent. No pneumothorax or pleural effusion. Diffuse ground-glass opacity in the right upper lobe has improved from comparison, and there is some residual bronchovascular distribution ground-glass opacity in the inferior right upper lobe as well as some bronchial alveolar distribution ground-glass STS. [facility] A Service of [facility] RADIOLOGY TEXT RESULTS PATIENT: MICKY GOMEZ LOCATION: [facility] : 56 UNIT #: [id number] AGE: [address]: Mario Ferguson MD SEX: F ORDER DR: opacity that may be actually increased from January 07, 2017. The ground-glass attenuation in the inferior right upper lobe appears to be associated with areas of mild bronchiectasis. In the right middle lobe, there is a bronchioalveolar distribution focal ground-glass opacity with likely associated pulmonary nodule measuring up to 4 mm. There may be some other new clustered nodules in the adjacent right middle lobe abutting the major fissure. There is also a residual focal area of ground-glass attenuation in the right upper lobe measuring up to 7 mm. In the superior segment of the right lower lobe, there is a new nodule measuring up to 6 mm. In the medial basilar right lower lobe, there is a pleural-based ground-glass attenuation that may reflect focal atelectasis, new from comparison. Focal band-like atelectasis is noted in the pleural-based anterior right middle lobe. A prior cholecystectomy. Mild fatty infiltration of the pancreas. IMPRESSION 1. There has been significant interval improvement in some of the ground-glass opacities seen previously in the right upper lobe on January 07, 2017; however, there appear to be increased bronchovascular distribution ground-glass opacities in the inferior right upper lobe with associated mild bronchiectasis. There is also a separate bronchoalveolar distribution area of new ground-glass opacity in the right upper lobe. In the right middle lobe, there are increased focal bronchoalveolar distribution ground-glass opacities with new associated clustered nodules measuring up to 4 mm. There is also extension of attenuation along the adjacent bronchus, and there may be mild associated bronchiectasis. The constellation of findings would seem to be most in keeping with recurrent Mycobacterium avium intracellulare infection. There is also a new ground-glass opacity in the medial basilar segment right lower lobe that may reflect atelectasis or infection, as well. There is also a new 6-mm nodule in the right lower lobe. Given new nodules, consider followup CT chest without IV contrast in 6-12 months. 2. Minimal multivessel coronary artery calcifications. Minimal calcification of the aortic valve. 3. Grossly stable mediastinal lymph nodes, 1 of which is top normal in size, favored to be reactive. 4. Prior cholecystectomy. 5. There is also a new 7-mm nodular density in the right upper lobe. Recommendation stands for CT chest followup without IV contrast. Dictated by... Omar Olivas M.D. THIS IS AN ELECTRONICALLY VERIFIED REPORT Omar Olivas M.D. at 04/04/2017 4:55 PM [facility] A Service of [facility] RADIOLOGY TEXT RESULTS PATIENT: MICKY GOMEZ LOCATION: [facility] : 56 UNIT #: [id number] AGE: [address]: Mario Ferguson MD SEX: F ORDER DR: Katie TD: 04/04/2017 15:54 JOB #: [id number] MEDICAL IMAGING REPORT Page 1 of 1 COPY
== END | disposition home or self-care (01) ==
LOC: CCAT 11:58
DX: R91.8 Other nonspecific abnormal finding of lung field (principal); Z90.49 Acquired absence of other specified parts of digestive tract
CPT/HCPCS: 71250